=== PATIENT | male | born 1960 | race Caucasian/White ===

== ENCOUNTER 2017-08-07 13:01 | Inpatient (IN) | payer BC ==
[~2017-08-07] VITALS: Ht 180.3 cm; Wt 104.0 kg
[2017-08-28] VITALS (11 sets, daily range): BP systolic 78–124; BP diastolic 47–88; PULSE 73–110; TEMP 97.7–98.2
[2017-08-28] MEDS ORDERED: PRINZIDE 25 MG-1 TAB PO (06:16)
[2017-08-28] MEDS ORDERED: PROTONIX 40MG T40 MG PO (06:16)
[2017-08-28] MEDS ORDERED: ASPIRIN E.C. 8181 MG PO (06:17)
[2017-08-28] MEDS ORDERED: LIPITOR 10MG10 MG PO (06:17)
[2017-08-28 14:35] LABS: HEMOGLOBIN 10.6 g/dl (13.5-18.0)
[2017-08-28 14:39] LABS: HEMATOCRIT 31.1 % (42.0-52.0)
[2017-08-29 00:02] VITALS: BP 106/72; BP 76/51; PULSE 55; TEMP 97.5
[2017-08-29 04:01] VITALS: BP 104/63; PULSE 94; TEMP 98.2
[2017-08-29 07:11] LABS: BASO % 0.1 % (0.0-2.0); GRAN # 11.9 (1.4-6.5); GRAN % 87.2 % (42.2-75.2); LYMPH # 0.7 (1.2-3.4); MEAN CELL VOLUME 96 fl (80.0-100.0); MEAN CORPUSCULAR HGB CONC 34 g/dl (33.0-37.0); MEAN PLATELET VOLUME 11.9 fl (7.4-10.4); MONO % 7.3 % (1.7-9.3); PLATELET COUNT 129 K/mm3 (130-400); RED BLOOD COUNT 2.86 M/mm3 (4.20-5.60); REDCELL DISTRIBUTION WIDTH-CV 12.8 % (11.5-14.5)
[2017-08-29 07:17] LABS: HEMATOCRIT 27.3 % (42.0-52.0); HEMOGLOBIN 9.4 g/dl (13.5-18.0); MEAN CORPUSCULAR HEMOGLOBIN 33 pg (27.0-31.0)
[2017-08-29 07:26] LABS: CALCIUM 8.1 mg/dL (8.4-10.2); CREATININE, serum 1.07 mg/dL (0.66-1.25); POTASSIUM 4.3 mmol/L (3.4-5.0)
[2017-08-29 07:29] VITALS: BP 100/60; PULSE 71; TEMP 97.9
[2017-08-29 11:08] VITALS: BP 96/54; PULSE 87; TEMP 98.1
[2017-08-29 15:50] VITALS: BP 100/61; PULSE 75; TEMP 98
[2017-08-29 20:00] VITALS: BP 97/62; PULSE 73; TEMP 98
[2017-08-30 00:13] VITALS: BP 98/64; PULSE 64; TEMP 98.6
[2017-08-30 04:00] VITALS: BP 110/70; PULSE 73; TEMP 98
[2017-08-30 08:00] VITALS: BP 121/68; PULSE 75; TEMP 97.9
[2017-08-30 15:46] VITALS: BP 132/70; PULSE 85; TEMP 97.8
== END 2017-08-30 20:04 | disposition home or self-care (01) | DRG 708 ==
LOC: SURG 08-28 05:22 → INPTSU 08-28 05:22 → SURG 08-28 07:30
PROVIDERS: Urology
PROC: 07BC0ZX Excision of Pelvis Lymphatic, Open Approach, Diagnostic (ICD-10-PCS; 2017-08-28)
PROC: 0VT00ZZ Resection of Prostate, Open Approach (ICD-10-PCS; principal; 2017-08-28 07:30)
DX: C61 Malignant neoplasm of prostate (principal); I10 Essential (primary) hypertension
CPT/HCPCS: A9284; J0690; J1100; J2250; J2370; J2405; J2704; J2710; J3480; J7050; J7120

== ENCOUNTER → 2020-06-08 | Outpatient (CLI) | payer BC ==
[~2020-06-08] MED LIST: ASPIRIN E.C. 8181 MG PO; LIPITOR 10MG10 MG PO; PRINZIDE 25 MG-1 TAB PO; PROTONIX 40MG T40 MG PO
== END ==
LOC: COL.RAD 06-06 09:15
DX: Z85.46 Personal history of malignant neoplasm of prostate (principal); Z90.79 Acquired absence of other genital organ(s)
CPT/HCPCS: A9503; Q9967